=== PATIENT | male | born 2000 | race Caucasian/White ===

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

== ENCOUNTER → 2024-01-31 | Outpatient (CLI) | payer BC | LOC: M WUC 15:16 | PROVIDERS: ATTEND Student in an Organized Health Care Education/Training Program | DX: M25.561 Pain in right knee (principal) ==

== ENCOUNTER → 2024-02-05 | Outpatient (CLI) | payer BC | LOC: M RAD 13:28 | PROVIDERS: ATTEND Physician Assistant | DX: S83.241A Other tear of medial meniscus, current injury, right knee, initial encounter (principal); S83.281A Other tear of lateral meniscus, current injury, right knee, initial encounter; M71.21 Synovial cyst of popliteal space [Baker], right knee; Y92.9 Unspecified place or not applicable; Y93.9 Activity, unspecified; Y99.9 Unspecified external cause status; X58.XXXA Exposure to other specified factors, initial encounter ==